=== PATIENT | female | born 1985 | race Hispanic/Latino ===

== ENCOUNTER 2017-10-11 17:09 | Emergency (ER) | payer SELFPAY ==
[2017-10-11] MEDS ORDERED: PROCHLORPERAZINE EDISYLATE 10 MG/2 ML VIAL ONE (17:57)
[2017-10-11] MEDS ORDERED: SODIUM CHLORIDE 0.9% 1000ML 1,000 ML IV ONE (17:57)
[2017-10-11] MEDS ORDERED: DEXAMETHASONE SOD PHOSPHATE 10MG/ML 1ML VIAL ONE (17:57)
[2017-10-11] MEDS ORDERED: DiphenhydrAMINE HCL 50 MG/ML VIAL ONE (17:57)
== END 2017-10-11 18:30 | disposition home or self-care (01) ==
LOC: EDH 17:09
DX: G44.209 Tension-type headache, unspecified, not intractable (principal); F41.9 Anxiety disorder, unspecified
CPT/HCPCS: 96374; 96375; 99284; J0780; J1100; J1200; J7030

== ENCOUNTER 2019-12-27 23:29 | Emergency (ER) | payer MEDICAID ==
[2019-12-28 00:02] LABS: BILIRUBIN,URINE Negative (NEGATIVE); COLOR,URINE Dark Yellow (YELLOW); GLUCOSE, URINE (UA) Negative (NEGATIVE); KETONES,URINE 15 mg/dL (NEGATIVE); LEUKOCYTE ESTERASE ,URINE Small (NEGATIVE); NITRATE,URINE Positive (NEGATIVE); OCCULT BLOOD,URINE Negative (NEGATIVE); PROTEIN,URINE Negative (NEGATIVE)
[2019-12-28 00:06] LABS: APPEARANCE,URINE SLIGHTLY CLOUDY (CLEAR); HCG,QUAL RESULT NEGATIVE (NEGATIVE)
[2019-12-28 00:11] LABS: RBC,URINE 0-1 /HPF (0-1)
[2019-12-28 00:12] LABS: BACTERIA,URINE Many /HPF (None Seen); MUCUS,URINE Rare LPF (None Seen)
[2019-12-28 00:26] LABS: AMPHET/METH SCREEN,URINE POSITIVE (NEGATIVE); BARBITURATE SCREEN, URINE NEGATIVE (NEGATIVE); BENZODIAZEPINES SCREEN,URINE POSITIVE (NEGATIVE); CANNABINOID SCREEN,URINE NEGATIVE (NEGATIVE); COCAINE SCREEN,URINE POSITIVE (NEGATIVE); OPIATE SCREEN,URINE NEGATIVE (NEGATIVE); PHENCYCLIDINE SCREEN,URINE NEGATIVE (NEGATIVE)
[2019-12-28] MEDS ORDERED: CEPHALEXIN 500 MG CAPSULE ONE (00:42)
[2019-12-28] MEDS ORDERED: IBUPROFEN 600 MG TABLET ONE (01:28)
== END 2019-12-28 01:38 ==
LOC: EDH 23:29 → EEVIPCON 23:29 → EDH 12-28 01:38
DX: R07.89 Other chest pain (principal); F41.9 Anxiety disorder, unspecified; N39.0 Urinary tract infection, site not specified; F19.10 Other psychoactive substance abuse, uncomplicated; Z72.0 Tobacco use
CPT/HCPCS: 71101; 80305; 81001; 81025; 87077; 87088; 87186; 93005